=== PATIENT | male | born 1940 | race Caucasian/White ===

== ENCOUNTER 2022-01-23 09:15 | Inpatient (IN) ==
[~2022-01-23 09:15] MED LIST: *HR* FentaNYL (PF) 100 MCG/2 ML VIAL IVP PRN; Acetaminophen IV 1,000 MG/100 ML BAG IVPB ONE; Albuterol 2.5 MG/3 ML NEBULIZER IH PRN; Famotidine 20 MG/2 ML VIAL IVP ONE; Naloxone 0.4 MG/ML INJ IVP PRN; Nitroglycerin 0.4 MG TAB.SUBL SL PRN; Ondansetron 4 MG/2 ML VIAL IVP PRN
[2022-01-23] MEDS ORDERED: CeFAZolin Syr 2,000MG/20 ML 2,000 MG/20 ML SYRINGE IVPB ONE (09:33)
[2022-01-23] MEDS ORDERED: *HR* FentaNYL (PF) 100 MCG/2 ML VIAL ONE (09:43)
[2022-01-23] MEDS ORDERED: Ondansetron 4 MG/2 ML VIAL ONE (09:43)
[2022-01-23] MEDS ORDERED: Lidocaine -MPF 2% 5 ML VIAL ONE (09:43)
[2022-01-23] MEDS ORDERED: *HR* Propofol 200 MG/20 ML VIAL IVP ONE (09:43)
[2022-01-23] MEDS ORDERED: *HR* Rocuronium Bromide 50 MG/5 ML VIAL ONE (09:43)
[2022-01-23] MEDS ORDERED: Ringers Solution, Lactated 1,000 ML IVC SCH ×2 (09:45→10:00)
[2022-01-23] MEDS ORDERED: Ondansetron 4 MG/2 ML VIAL IVP ONE (10:35)
[2022-01-23] MEDS ORDERED: Ipratropium Neb 0.5 MG NEBULIZER IH PRN (10:42)
[2022-01-23] MEDS ORDERED: EPHEDrine 50 MG/ML VIAL ONE (11:37)
[2022-01-23] MEDS ORDERED: Sugammadex Sodium 200 MG/2 ML VIAL IV ONE (12:26)
[2022-01-23] MEDS ORDERED: *HR* HYDROMORPHONE 2 MG/ML VIAL ONE (13:14)
[2022-01-23] MEDS ORDERED: Naloxone 0.4 MG/ML INJ IVP PRN (15:49)
[2022-01-23] MEDS: *HR* Heparin 5,000 UNIT/ML VIAL SQ SCH ×2 (16:16→20:30)
[2022-01-23] MEDS: Gabapentin 100 MG CAPSULE PO SCH ×2 (16:16→20:30)
[2022-01-23] MEDS: Ipratropium/Albuterol Neb 3 ML IH SCH ×2 (16:16→20:33)
[2022-01-23] MEDS: 0.9 % Sodium Chloride 1,000 ML IVC SCH (16:17)
[2022-01-23] MEDS: Sennosides/Docusate Sodium TABLET PO SCH (20:30)
[2022-01-23] MEDS: Famotidine 20 MG TABLET PO SCH (20:30)
[2022-01-24] MEDS: Ipratropium/Albuterol Neb 3 ML IH SCH ×7 (00:14→23:51)
[2022-01-24] MEDS: *HR* HYDROcodone/Acet 5/325 mg TABLET PO PRN ×4 (02:50→20:45)
[2022-01-24] MEDS: *HR* Heparin 5,000 UNIT/ML VIAL SQ SCH ×3 (05:33→20:33)
[2022-01-24] MEDS: 0.9 % Sodium Chloride 1,000 ML IVC SCH (05:35)
[2022-01-24 06:43] LABS: Hematocrit 32.1 % (37.5-50.1); Hemoglobin 10.5 g/dL (12.9-16.9); Mean Corpuscular HGB Conc 32.7 g/dL (31.6-35.5); Mean Corpuscular Hemoglobin 30.1 pg (28.0-33.3); Mean Platelet Volume 9.4 fL (9.4-12.4); Platelet Count 228 K/mcL (140-400); Red Blood Count 3.49 M/mcL (4.19-5.50); Red Cell Distribution Width 13.7 % (11.5-14.5); White Blood Count 8.3 K/mcL (4.3-11.1)
[2022-01-24 07:07] LABS: Calcium 8.5 mg/dL (8.6-10.3); Magnesium 1.5 mg/dL (1.6-2.6); Potassium 4.1 mEq/L (3.5-5.1)
[2022-01-24] MEDS: Gabapentin 100 MG CAPSULE PO SCH ×3 (08:53→20:33)
[2022-01-24] MEDS: Sennosides/Docusate Sodium TABLET PO SCH ×2 (08:53→20:33)
[2022-01-24] MEDS: Metoprolol XL (24 HR) Succ 25 MG TAB.ER.24H PO SCH (08:53)
[2022-01-24] MEDS: Famotidine 20 MG TABLET PO SCH ×2 (08:53→20:34)
[2022-01-24] MEDS: Losartan/HCTZ 50-12.5 TABLET PO SCH (08:54)
[2022-01-25 02:28] LABS: Calcium 8.4 mg/dL (8.6-10.3)
[2022-01-25] MEDS: Ipratropium/Albuterol Neb 3 ML IH SCH ×6 (03:57→23:09)
[2022-01-25 04:13] LABS: Magnesium 2.1 mg/dL (1.6-2.6)
[2022-01-25] MEDS: *HR* Heparin 5,000 UNIT/ML VIAL SQ SCH ×3 (04:53→20:43)
[2022-01-25] MEDS: *HR* HYDROcodone/Acet 5/325 mg TABLET PO PRN (04:53)
[2022-01-25] MEDS ORDERED: *HR* Metoprolol 5 MG/5 ML VIAL IVP ONE (06:33)
[2022-01-25] MEDS: Famotidine 20 MG TABLET PO SCH ×2 (09:05→20:43)
[2022-01-25] MEDS: Sennosides/Docusate Sodium TABLET PO SCH ×2 (09:05→20:43)
[2022-01-25] MEDS: Metoprolol XL (24 HR) Succ 25 MG TAB.ER.24H PO SCH (09:05)
[2022-01-25] MEDS: Gabapentin 100 MG CAPSULE PO SCH ×3 (09:06→20:43)
[2022-01-25] MEDS: Losartan/HCTZ 50-12.5 TABLET PO SCH (12:29)
[2022-01-25] MEDS ORDERED: Amiodarone Premix 150 MG/100 ML BAG IVPB ONE (12:30)
[2022-01-25] MEDS ORDERED: Amiodarone Premix 360 MG/200 ML BAG IVC ONE (12:50)
[2022-01-25] MEDS: Amiodarone Premix 360 MG/200 ML BAG IVC SCH (18:29)
[2022-01-26 02:32] LABS: Calcium 8.2 mg/dL (8.6-10.3); Potassium 3.8 mEq/L (3.5-5.1)
[2022-01-26] MEDS: Ipratropium/Albuterol Neb 3 ML IH SCH ×6 (04:34→23:00)
[2022-01-26] MEDS: *HR* Heparin 5,000 UNIT/ML VIAL SQ SCH ×2 (05:56→14:59)
[2022-01-26] MEDS: Amiodarone Premix 360 MG/200 ML BAG IVC SCH ×2 (05:56→17:18)
[2022-01-26] MEDS: Losartan/HCTZ 50-12.5 TABLET PO SCH (08:26)
[2022-01-26] MEDS: Famotidine 20 MG TABLET PO SCH (08:27)
[2022-01-26] MEDS: Metoprolol XL (24 HR) Succ 25 MG TAB.ER.24H PO SCH ×2 (08:27→21:10)
[2022-01-26] MEDS: Gabapentin 100 MG CAPSULE PO SCH ×3 (08:27→21:21)
[2022-01-26] MEDS: Sennosides/Docusate Sodium TABLET PO SCH ×2 (08:27→21:21)
[2022-01-26] MEDS: *HR* HYDROcodone/Acet 5/325 mg TABLET PO PRN ×3 (08:32→17:25)
[2022-01-26] MEDS ORDERED: Metoprolol XL (24 HR) Succ 25 MG TAB.ER.24H PO ONE (12:30)
[2022-01-26] MEDS ORDERED: 0.9 % Sodium Chloride 500 ML IVC ONE (13:28)
[2022-01-26] MEDS ORDERED: 0.9 % Sodium Chloride 500 ML ONE (13:28)
[2022-01-26] MEDS: Ondansetron 4 MG/2 ML VIAL IVP PRN ×2 (13:56→21:40)
[2022-01-26 14:01] LABS: Hematocrit 29.6 % (37.5-50.1); Mean Corpuscular HGB Conc 33.8 g/dL (31.6-35.5); Mean Corpuscular Hemoglobin 30.6 pg (28.0-33.3); Mean Corpuscular Volume 90.5 fL (83.0-100.0); Platelet Count 214 K/mcL (140-400); Red Blood Count 3.27 M/mcL (4.19-5.50); Red Cell Distribution Width 13.8 % (11.5-14.5); White Blood Count 10.2 K/mcL (4.3-11.1)
[2022-01-26 14:08] LABS: INR 1.1; Prothrombin Time 12.8 Seconds (9.4-12.1)
[2022-01-26 14:11] LABS: VBG HCO3 24 mEq/L (21-27); VBG PCO2 49 mmHg (41-51); VBG PO2 44 mmHg (25-50)
[2022-01-26 14:11] LABS: Activated Partial Thrombo Time 27.6 Seconds (26.0-36.0)
[2022-01-26 14:23] LABS: Albumin 3.4 g/dL (3.5-5.7); Albumin/Globulin Ratio 1.2 (1.1-2.2); Bilirubin,Total 0.4 mg/dL (0.3-1.0); Calcium 8.4 mg/dL (8.6-10.3); Globulin 2.8 g/dL (2.4-3.5); Magnesium 1.9 mg/dL (1.6-2.6); Phosphorous 3.5 mg/dL (2.7-4.5); Potassium 4.4 mEq/L (3.5-5.1); Total Protein 6.2 g/dL (6.4-8.9)
[2022-01-26] MEDS: Levalbuterol Neb 0.63 MG/3 ML IH SCH ×2 (14:24→21:22)
[2022-01-26] MEDS: Acetylcysteine 10% 2 ML INHSOL IH SCH ×3 (14:24→21:25)
[2022-01-26] MEDS ORDERED: Magnesium Sulfate 1 GM/102 ML PIGGYBACK IVPB ONE (15:41)
[2022-01-26] MEDS ORDERED: Levalbuterol Neb 0.63 MG/3 ML IH SCH (16:00)
[2022-01-26] MEDS: Heparin 25,000UNIT/250ML 1/2NS 25,000 UNIT/250 ML IV.SOLN IVC SCH (16:11)
[2022-01-26] MEDS: Simethicone 80 MG TAB.CHEW PO SCH ×2 (16:28→21:41)
[2022-01-26] MEDS ORDERED: MethylPREDNISolone 40 MG/ML VIAL IVP ONE (18:37)
[2022-01-26] MEDS ORDERED: Melatonin 3 MG TABLET PO PRN (20:08)
[2022-01-26] MEDS ORDERED: Albumin 25% 25gram/100mL 25 GM/100 ML IV.SOLN IVPB ONE (20:45)
[2022-01-27] MEDS ORDERED: 0.9 % Sodium Chloride 250 ML IVC ONE (02:45)
[2022-01-27] MEDS ORDERED: 0.9 % Sodium Chloride 250 ML ONE (02:56)
[2022-01-27] MEDS: Ipratropium/Albuterol Neb 3 ML IH SCH ×3 (03:55→11:10)
[2022-01-27] MEDS: Levalbuterol Neb 0.63 MG/3 ML IH SCH ×4 (04:04→23:02)
[2022-01-27] MEDS: Acetylcysteine 10% 2 ML INHSOL IH SCH ×4 (04:05→23:03)
[2022-01-27] MEDS: Amiodarone Premix 360 MG/200 ML BAG IVC SCH (04:36)
[2022-01-27] MEDS ORDERED: Metoprolol XL (24 HR) Succ 50 MG TAB.ER.24H PO SCH (09:00)
[2022-01-27] MEDS: Sennosides/Docusate Sodium TABLET PO SCH ×2 (09:33→20:06)
[2022-01-27] MEDS: Metoprolol XL (24 HR) Succ 25 MG TAB.ER.24H PO SCH ×2 (09:33→20:09)
[2022-01-27] MEDS: Simethicone 80 MG TAB.CHEW PO SCH ×4 (09:33→20:06)
[2022-01-27] MEDS: Gabapentin 100 MG CAPSULE PO SCH ×3 (09:34→20:07)
[2022-01-27] MEDS: Famotidine 20 MG TABLET PO SCH (09:34)
[2022-01-27 09:38] LABS: Hematocrit 25.6 % (37.5-50.1); Hemoglobin 8.6 g/dL (12.9-16.9); Mean Corpuscular HGB Conc 33.6 g/dL (31.6-35.5); Mean Corpuscular Hemoglobin 30.2 pg (28.0-33.3); Mean Corpuscular Volume 89.8 fL (83.0-100.0); Mean Platelet Volume 9.3 fL (9.4-12.4); Platelet Count 201 K/mcL (140-400); Red Blood Count 2.85 M/mcL (4.19-5.50); Red Cell Distribution Width 13.8 % (11.5-14.5); White Blood Count 8.2 K/mcL (4.3-11.1)
[2022-01-27 10:00] LABS: Calcium 8.6 mg/dL (8.6-10.3); Magnesium 2.4 mg/dL (1.6-2.6); Potassium 4.6 mEq/L (3.5-5.1); Troponin I 0.04 ng/mL (< 0.04)
[2022-01-27] MEDS ORDERED: Furosemide 20 MG TABLET PO ONE (11:30)
[2022-01-27] MEDS: Heparin 25,000UNIT/250ML 1/2NS 25,000 UNIT/250 ML IV.SOLN IVC SCH (11:39)
[2022-01-27] MEDS ORDERED: predniSONE 10 MG TABLET PO SCH (11:45)
[2022-01-27] MEDS ORDERED: Metoprolol XL (24 HR) Succ 25 MG TAB.ER.24H PO ONE (12:17)
[2022-01-27] MEDS ORDERED: *HR* Heparin 5,000 UNIT/ML VIAL IVP ONE (14:12)
[2022-01-27] MEDS ORDERED: *HR* Heparin 5,000 UNIT/ML VIAL IVP PRN ×2 (14:12)
[2022-01-27] MEDS ORDERED: Heparin 25,000UNIT/250ML 1/2NS 25,000 UNIT/250 ML IV.SOLN IVC SCH (14:15)
[2022-01-27] MEDS: *HR* Amiodarone 200 MG TABLET PO SCH (16:04)
[2022-01-27] MEDS ORDERED: Furosemide 20 MG/2 ML VIAL IVP SCH (17:00)
[2022-01-28] MEDS: Acetylcysteine 10% 2 ML INHSOL IH SCH ×2 (03:45→10:15)
[2022-01-28] MEDS: Levalbuterol Neb 0.63 MG/3 ML IH SCH ×2 (03:45→10:15)
[2022-01-28] MEDS: Simethicone 80 MG TAB.CHEW PO SCH (08:57)
[2022-01-28] MEDS: Sennosides/Docusate Sodium TABLET PO SCH (08:58)
[2022-01-28] MEDS: Gabapentin 100 MG CAPSULE PO SCH (08:58)
[2022-01-28] MEDS: *HR* Amiodarone 200 MG TABLET PO SCH (08:58)
[2022-01-28] MEDS: Famotidine 20 MG TABLET PO SCH (08:58)
[2022-01-28] MEDS: Metoprolol XL (24 HR) Succ 25 MG TAB.ER.24H PO SCH (08:58)
[2022-01-28] MEDS ORDERED: Furosemide 20 MG TABLET PO ONE (10:48)
[2022-01-28 12:07] VITALS: BP 123/53; TEMP 98.8
[2022-01-28 12:21] VITALS: PULSE 77; O2SAT 100
== END 2022-01-28 13:49 | disposition home or self-care (01) | DRG 164 ==
LOC: SAMDAY 09:15 → 2NNU 15:47
PROVIDERS: ADMIT Thoracic Surgery (Cardiothoracic Vascular Surgery); ATTEND Thoracic Surgery (Cardiothoracic Vascular Surgery)